=== PATIENT | female | born 1985 | race Caucasian/White ===

== ENCOUNTER 2020-01-13 15:37 | Outpatient (REF) | payer OTHER, SELFPAY ==
--- NOTE | 2020-01-13 16:00 | MR_ITS ---
EXAMINATION: MR CERVICAL SPINE WITHOUT CONTRAST CLINICAL INFORMATION: Radiculopathy, cervical region COMPARISON: None available. TECHNIQUE: MRI of the cervical spine was performed using routine sequences without contrast. FINDINGS: The cervical vertebral bodies maintain normal height and alignment. There is reversal of the normal lordosis. The disc heights appear preserved. No marrow edema is seen. The cervical cord signal appears normal. The imaged portions of the intracranial contents and extraspinal soft tissues appear normal. SPINAL LEVELS: C2-C3: No posterior disc abnormality. No spinal canal or neural foraminal stenosis. C3-C4: No posterior disc abnormality. No spinal canal or neural foraminal stenosis. C4-C5: Minimal disc bulging. No spinal canal or neural foraminal stenosis. C5-C6: Diffuse disc bulging with right foraminal protrusion and small left foraminal protrusion. Mild narrowing of the bilateral neural foramina. No spinal canal stenosis. C6-C7: Mild disc bulging. No spinal canal or neural foraminal stenosis. C7-T1: No posterior disc abnormality. No spinal canal or neural foraminal stenosis. MR/MR cervical spine wo con IMPRESSION: At C5-C6 there is diffuse disc bulging with right more than left foraminal protrusions resulting in mild narrowing of the bilateral foramina. Additional disc bulges are seen at C4-C5 and C6-C7. No significant narrowing of the spinal canal. No cord signal abnormality.
== END 2020-01-13 15:38 | disposition home or self-care (01) ==
LOC: HO.MRI 15:37
PROVIDERS: PCP Internal Medicine; Visit Provider Psychiatry & Neurology Neurology
DX: M54.12 Radiculopathy, cervical region (principal)
CPT/HCPCS: 72141

== ENCOUNTER → 2020-08-25 15:50 | Outpatient (BNVA) | payer OTHER, SELFPAY | PROVIDERS: PCP Internal Medicine; Visit Provider Advanced Practice Midwife ==

== ENCOUNTER 2020-10-09 05:26 | Emergency (ER) | payer OTHER, SELFPAY ==
--- NOTE | ~2020-10-09 | XR_ITS ---
EXAMINATION: XR CHEST CLINICAL INFORMATION: Dyspnea COMPARISON: 10/14/2019 TECHNIQUE: Frontal view of the chest was obtained. FINDINGS: The lungs are clear with no focal consolidation. No evidence of pneumothorax, pulmonary edema, or pleural effusions. The cardiomediastinal silhouette is unremarkable. No acute osseous findings. XR/XR chest 1V IMPRESSION: No acute cardiopulmonary findings.
[2020-10-09 06:11] LABS: COVID-19 Test Negative (Negative)
[2020-10-09 06:21] VITALS: BP 112/78; PULSE 74; RESP 16; TEMP 36.6; O2SAT 100; BMI 25.3
--- NOTE | 2020-10-09 06:42 | ED.SOB ---
HPI - SOB/Dyspnea General Chief Complaint: Upper Respiratory Symptoms Stated Complaint: SOB/back pain Time Seen by Provider: 10/09/20 06:36 Source: patient Mode of arrival: ambulatory Limitations: no limitations History of Present Illness MD elicited complaint: cough and pain with inspiration Onset (ago): day(s) (yesterday) Timing: intermittent Severity: moderate Exacerbating factors: movement and inspiration Relieving factors: nothing Associated symptoms: lower extremity pain (her right thigh was painful yesterday) Treatment prior to arrival: none Related Data Home Medications Medication Instructions Recorded Confirmed methadone 10 mg tablet 12 mg PO DAILY tab 08/25/20 Previous Rx's Medication Instructions Recorded nicotine 14 mg/24 hr daily 1 patch TRANSDERMAL DAILY 7 Days 03/24/20 transdermal patch (Nicoderm CQ) #7 ea nicotine 21 mg/24 hr daily 1 patch TRANSDERMAL DAILY 7 Days 03/24/20 transdermal patch #7 ea nicotine 21 mg/24 hr daily 1 patch TRANSDERMAL Q24H 7 Days #7 03/24/20 transdermal patch (Nicoderm CQ) ea nicotine 7 mg/24 hr daily 1 patch TRANSDERMAL Q24H 7 Days #7 03/24/20 transdermal patch ea omeprazole 40 mg capsule,delayed 40 mg PO DAILY #30 cap 08/18/20 release cyclobenzaprine 10 mg tablet 10 mg PO TID PRN #14 tab 10/09/20 lidocaine 4 % topical patch 1 patch TOPICAL DAILY PRN #10 ea 10/09/20 Allergies Allergy/AdvReac Type Severity Reaction Status Date / Time No Known Allergies Allergy Verified 12/18/19 06:24 Review of Systems Review of Systems: Constitutional : No Fever, No Chills ENT/Mouth : No sore throat, No Rhinorrhea, No Swallowing Difficulty Eyes: No Eye Pain, No Swelling, No Redness Cardiovascular : No Chest Pain, positive SOB, No Orthopnea, pos dyspnea Gastrointestinal : No Nausea, No Vomiting, No Diarrhea, No abdominal Pain, No Hematochezia, No Melena Genitourinary : No Dysuria, No Urinary Frequency, No Hematuria Musculoskeletal : No joint pain, No Myalgias, pos back pain Skin : No Skin Lesions, No rash Neuro : No Weakness, No Numbness, No Dizziness, No Headache Psych : No Anxiety/Panic, No Depression Heme/Lymph: No Bruising, No Lymphadenopathy Endocrine : No Polyuria, No Polydipsia All other systems reviewed and are negative PMFSH Past Medical History Attestation statement: The following information was validated with the patient. Medical History Anxiety GERD (gastroesophageal reflux disease) Methadone use Obesity Surgical History H/O LEEP History of skin graft Family History Family History Father No problems noted. Mother No problems noted. Maternal Grandmother Breast cancer Lung cancer Social History Social History Alcohol intake: former Patient Tobacco Use Status: Current everyday Tobacco user Tobacco use type: Cigarette Cigarette Packs Per Day: 1 Cigarettes Per Day: 20 Use of substances other than those prescribed or required for medical reasons: No Advance Directives: No Advance Directives Information Provided: Yes Patient : No Sexual orientation: Straight/Heterosexual Gender identity: Female Physical Exam Vital Signs: Vital Signs: Last Vital Signs Temp 98.4 F 10/09/20 07:01 Pulse 88 10/09/20 07:01 Resp 16 10/09/20 07:01 BP 108/73 10/09/20 07:01 Pulse Ox 98 10/09/20 07:01 Body Mass Index 25.3 Appearance: Alert. Oriented X3. No acute distress. Eyes: Pupils equal, round and reactive to light. ENT: Pharynx normal. Neck: Normal inspection. Neck supple. CVS: Normal heart rate and rhythm. Pulses normal. Respiratory: No respiratory distress. Breath sounds normal. Abdomen: Soft and non-tender. Skin: Skin warm and dry. Normal skin color. Normal skin turgor. Extremities: No lower extremity edema. No calf ttp Neuro: Oriented X 3. No motor deficit. No sensory deficit. Course Course Course Narrative: negative workup stable for DC MDM - SOB/Dyspnea MDM Narrative Medical decision making narrative: 35 yo female with heavy smoking history comes in with dyspnea and posterior pleuritic pain in her back. She denies URI symptoms. She has no trauma. She does have an implanon at this time could be MSK vs pneumonia vs PE. COVID swab, CXR and basic labs including ddimer for low prob PE dispo per results and findings. Lab Data Result diagrams: 10/09/20 06:54 10/09/20 06:54 Labs: Lab Results 10/09/20 10/09/20 10/09/20 Range/Units 05:52 06:54 06:54 WBC 9.2 (4.8-10.8) X10*3/uL RBC 4.18 L (4.20-5.50) X10*6/uL Hgb 12.9 (12.0-16.0) g/dl Hct 38.5 (37-47) % MCV 92.1 (80-98) fL MCH 30.9 (27.0-33.0) pg MCHC 33.5 (31.0-35.0) g/dl RDW 12.1 (11.0-16.0) % Plt Count 245 (160-400) X10*3/uL MPV 9.7 (9.4-12.3) fL Immature Gran % (Auto) 0.3 (0.0-0.4) % Neut % (Auto) 71.7 (45-73) % Lymph % (Auto) 20.2 (20-40) % [place] % (Auto) 5.9 (2-11) % Eos % (Auto) 1.6 (0-4) % Baso % (Auto) 0.3 (0-2) % Lymph # (Auto) 1.9 (1.2-4.9) X10*3/uL [place] # (Auto) 0.5 (0.1-1.2) X10*3/uL Eos # (Auto) 0.2 (0.0-0.4) X10*3/uL Baso # (Auto) 0.0 (0.0-0.2) X10*3/uL Abs Immat Gran (auto) 0.03 (0.00-0.03) X10*3/uL Absolute Neuts (auto) 6.6 (2.0-8.3) X10*3/uL Absolute Nucleated RBC 0.000 (0.0-0.012) X10*3/uL Nucleated RBC % (auto) 0.0 (0.0-0.2) /100WBC D-Dimer < 200 NG/ML Sodium (135-145) mmol/L Potassium (3.3-5.1) mmol/L Chloride (96-108) mmol/L Carbon Dioxide (22-29) mmol/L Anion Gap (12-20) BUN (9-16) mg/dL Creatinine (0.5-1.4) mg/dL Estim Creat Clear Calc Estimated GFR Random Glucose (60-115) mg/dL Calcium (8.4-10.2) mg/dL Urine Color Urine Appearance Urine pH (5.0-8.0) Ur Specific [place] (1.005-1.025) Urine Protein (NEG-TRACE) MG/DL Urine Glucose (UA) (NEG) MG/DL Urine Ketones (NEG) MG/DL Urine Blood (NEG) Urine Nitrite (NEG) Ur Leukocyte Esterase (NEG) COVID-19 (JUDY) Negative (Negative) COVID-19 Clin Com See Note 10/09/20 10/09/20 Range/Units 06:54 07:27 WBC (4.8-10.8) X10*3/uL RBC (4.20-5.50) X10*6/uL Hgb (12.0-16.0) g/dl Hct (37-47) % MCV (80-98) fL MCH (27.0-33.0) pg MCHC (31.0-35.0) g/dl RDW (11.0-16.0) % Plt Count (160-400) X10*3/uL MPV (9.4-12.3) fL Immature Gran % (Auto) (0.0-0.4) % Neut % (Auto) (45-73) % Lymph % (Auto) (20-40) % Towner % (Auto) (2-11) % Eos % (Auto) (0-4) % Baso % (Auto) (0-2) % Lymph # (Auto) (1.2-4.9) X10*3/uL [place] # (Auto) (0.1-1.2) X10*3/uL Eos # (Auto) (0.0-0.4) X10*3/uL Baso # (Auto) (0.0-0.2) X10*3/uL Abs Immat Gran (auto) (0.00-0.03) X10*3/uL Absolute Neuts (auto) (2.0-8.3) X10*3/uL Absolute Nucleated RBC (0.0-0.012) X10*3/uL Nucleated RBC % (auto) (0.0-0.2) /100WBC D-Dimer NG/ML Sodium 138 (135-145) mmol/L Potassium 3.7 (3.3-5.1) mmol/L Chloride 108 (96-108) mmol/L Carbon Dioxide 23 (22-29) mmol/L Anion Gap 11 L (12-20) BUN 11 (9-16) mg/dL Creatinine 0.79 (0.5-1.4) mg/dL Estim Creat Clear Calc 83.1 Estimated GFR > 60 Random Glucose 122 H (60-115) mg/dL Calcium 9.0 (8.4-10.2) mg/dL Urine Color YELLOW Urine Appearance CLEAR Urine pH 5.5 (5.0-8.0) Ur Specific [place] >= 1.030 H (1.005-1.025) Urine Protein NEG (NEG-TRACE) MG/DL Urine Glucose (UA) NEG (NEG) MG/DL Urine Ketones NEG (NEG) MG/DL Urine Blood NEG (NEG) Urine Nitrite NEG (NEG) Ur Leukocyte Esterase NEG (NEG) COVID-19 (JUDY) (Negative) COVID-19 Clin Com Discharge Plan Discharge Clinical Impression: Acute upper back pain Patient Disposition: Home, Self-Care Instructions: Back Pain (ED) Additional Instructions: return to ED for any worsening symptoms or concerns COVID swab negative, labs including blood clot test were normal, chest xray normal Prescriptions: New cyclobenzaprine 10 mg tablet 10 mg PO TID PRN (Reason: muscle spasm) Qty: 14 RF: 0 lidocaine 4 % adhesive patch,medicated 1 patch topical DAILY PRN (Reason: pain) Qty: 10 RF: 0 No Action nicotine [Nicoderm CQ] 14 mg/24 hr patch 24 hour 1 patch transdermal DAILY 7 Days Qty: 7 RF: 0 nicotine 7 mg/24 hr patch 24 hour 1 patch transdermal Q24H 7 Days Qty: 7 RF: 0 nicotine [Nicoderm CQ] 21 mg/24 hr patch 24 hour 1 patch transdermal Q24H 7 Days Qty: 7 RF: 0 nicotine 21 mg/24 hr patch 24 hour 1 patch transdermal DAILY 7 Days Qty: 7 RF: 0 omeprazole 40 mg capsule,delayed release(DR/EC) 40 mg PO DAILY Qty: 30 RF: 1 methadone 10 mg tablet 12 mg PO DAILY RF: 0 Stand Alone Forms: Work/School Release
[2020-10-09 07:00] LABS: MANUAL DIFF FLAG NO
[2020-10-09 07:01] VITALS: BP 108/73; PULSE 88; RESP 16; TEMP 36.9; O2SAT 98
[2020-10-09 07:03] LABS: Basophils Percent Auto 0.3 % (0-2); Eosinophils Absolute Auto 0.2 X10*3/uL (0.0-0.4); Eosinophils Percent Auto 1.6 % (0-4); Hematocrit 38.5 % (37-47); Hemoglobin 12.9 g/dl (12.0-16.0); Imm Gran Abs Auto 0.03 X10*3/uL (0.00-0.03); Imm Gran Pct Auto 0.3 % (0.0-0.4); Lymphocytes Absolute Auto 1.9 X10*3/uL (1.2-4.9); Lymphocytes Percent Auto 20.2 % (20-40); Mean Corpuscular HGB Conc 33.5 g/dl (31.0-35.0); Mean Corpuscular Hemoglobin 30.9 pg (27.0-33.0); Mean Corpuscular Volume 92.1 fL (80-98); Mean Platelet Volume 9.7 fL (9.4-12.3); Monocytes Absolute Auto 0.5 X10*3/uL (0.1-1.2); Monocytes Percent Auto 5.9 % (2-11); Neutrophils Absolute Auto 6.6 X10*3/uL (2.0-8.3); Neutrophils Percent Auto 71.7 % (45-73); Platelet Count 245 X10*3/uL (160-400); Red Blood Count 4.18 X10*6/uL (4.20-5.50); Red Cell Distribution Width 12.1 % (11.0-16.0); White Blood Count 9.2 X10*3/uL (4.8-10.8)
[2020-10-09 07:11] LABS: D Dimer < 200 NG/ML
[2020-10-09 07:26] LABS: Anion Gap 11 (12-20); Blood Urea Nitrogen 11 mg/dL (9-16); Carbon Dioxide 23 mmol/L (22-29); Chloride 108 mmol/L (96-108); Creatinine Clr Calc Pharmacy 83.1; Estimated Glomerular Filt Rate > 60; Glucose Random 122 mg/dL (60-115); Potassium 3.7 mmol/L (3.3-5.1); Sodium 138 mmol/L (135-145)
[2020-10-09 07:36] LABS: Glucose Urine UA NEG (NEG); Leukocyte Esterase Urine NEG (NEG); Nitrite Urine NEG (NEG); PH 5.5 (5.0-8.0); Specific Gravity - Urine >= 1.030 (1.005-1.025); Urine Blood NEG (NEG); Urine Ketones NEG (NEG); Urine Protein NEG (NEG-TRACE)
[2020-10-09 07:37] LABS: Appearance Urine CLEAR; Color Urine YELLOW
== END 2020-10-09 07:45 | disposition home or self-care (01) ==
PROVIDERS: Emergency Provider Emergency Medicine; PCP Internal Medicine
DX: M54.6 Pain in thoracic spine (principal); Z20.822 Contact with and (suspected) exposure to COVID-19; R05 Cough; F17.210 Nicotine dependence, cigarettes, uncomplicated
CPT/HCPCS: 36415; 71045; 80048; 81003; 85025; 85379; 87635; 99283; 99284

== ENCOUNTER 2021-05-31 10:12 | Emergency (ER) | payer OTHER, SELFPAY ==
--- NOTE | ~2021-05-31 | XR_ITS ---
EXAMINATION: XR CHEST CLINICAL INFORMATION: Swallowed pin to 3 days ago. Feels like a foreign body right side COMPARISON: None TECHNIQUE: 2 views of the chest were obtained. FINDINGS: No significant abnormality is noted involving the heart, lungs, mediastinum, bony thorax or soft tissues. XR/XR chest 2V IMPRESSION: Unremarkable chest examination.
--- NOTE | ~2021-05-31 | XR_ITS ---
EXAMINATION: XR SOFT TISSUE NECK CLINICAL INDICATION: Swallowed pill now with throat pain COMPARISON: None TECHNIQUE: 2 views of the soft tissue neck were obtained. FINDINGS: Soft tissue films of the neck demonstrate a normal larynx, pharynx and upper trachea. No soft tissue swelling or opaque foreign body is demonstrated. XR/XR soft tissue neck IMPRESSION: Unremarkable soft tissue examination.
[2021-05-31 11:11] VITALS: BP 112/71; PULSE 85; RESP 16; TEMP 36.3; O2SAT 97; BMI 28.2
[2021-05-31] MEDS: Lidocaine HCl Viscous 2 % 15 ML SOLUTION MUCOUS MEM (12:49)
--- NOTE | 2021-05-31 12:57 | ED.GENADULT ---
HPI - General Adult General Chief complaint: General Medical Stated complaint: Trouble swallowing Time Seen by Provider: 05/31/21 11:53 Related Data Home Medications Medication Instructions Recorded Confirmed methadone 10 mg tablet 12 mg PO DAILY tab 08/25/20 03/24/21 Previous Rx's Medication Instructions Recorded nicotine 21 mg/24 hr daily 1 patch TRANSDERMAL DAILY 14 Days 03/24/21 transdermal patch #14 ea omeprazole 40 mg capsule,delayed 40 mg PO DAILY #30 cap 05/18/21 release Allergies Allergy/AdvReac Type Severity Reaction Status Date / Time No Known Allergies Allergy Verified 03/24/21 15:11 [facility] Past Medical History Medical History Anxiety GERD (gastroesophageal reflux disease) Methadone use Obesity Surgical History H/O LEEP History of skin graft Family History Family History Father No problems noted. Mother No problems noted. Maternal Grandmother Breast cancer Lung cancer Social History Social History Housing: Apartment Alcohol intake: former Patient Tobacco Use Status: Current everyday Tobacco user Tobacco use type: Cigarette Cigarette Packs Per Day: 1 Cigarettes Per Day: 20 e-Cigarette/Vaping Use: Never Used Second Hand Smoke Exposure: No Advance Directives: No Advance Directives Information Provided: No Patient : No service: No Current occupational status: employed Sexual orientation: Straight/Heterosexual Gender identity: Female Cognitive needs: No Hearing needs: No Vision needs: No Physical Exam ED Vital Signs: Vital Signs - 24 hr 05/31/21 11:11 Temperature 97.4 F Pulse Rate 85 Respiratory Rate 16 Blood Pressure 112/71 Pulse Oximetry 97 BMI result Body Mass Index 28.2 Medical Decision Making Lab Data Labs: Lab Results 05/31/21 05/31/21 Range/Units 12:47 12:47 COVID-19 (JUDY) Negative (Negative) COVID-19 Clin Com See Note Influenza Type A (IZA) Negative (Negative) Influenza Type B (IZA) Negative (Negative) Influenza A & B Note See Note Discharge Plan Discharge Prescriptions: No Action omeprazole 40 mg capsule,delayed release(DR/EC) 40 mg PO DAILY Qty: 30 1RF nicotine 21 mg/24 hr patch 24 hour 1 patch transdermal DAILY 14 Days Qty: 14 1RF methadone 10 mg tablet 12 mg PO DAILY 0RF
[2021-05-31 13:19] LABS: COVID-19 Test Negative (Negative); IDNOW Serial# 16C4AD1C
[2021-05-31 13:20] LABS: IDNOW Serial# 55D5AD1C; Influenza A Negative (Negative); Influenza B2 Negative (Negative)
--- NOTE | 2021-05-31 13:31 | ED_ITS ---
HPI - Skin/Abscess/Foreign Bdy General Chief complaint: General Medical Stated complaint: Trouble swallowing Time Seen by Provider: 05/31/21 11:53 Source: patient Mode of arrival: ambulatory Limitations: no limitations History of Present Illness HPI narrative: 35-year-old female presenting to the ED with complaints of right-sided throat/esophagus pain after swallowing and amoxicillin on Monday. She reports that she started having some nasal congestion/rhinorrhea therefore she thought she was getting a sinus infection due to she has had sinus infections in the past and she had an old amoxicillin laying around her house and she decided to take it. She reports right after she took it she felt like it got stuck in her throat/esophagus on the right side. She has been drinking tons of water and juice and she has been eating and drinking and she still feels the sensation of the pill in her throat/esophagus. She denies any other symptoms complaints or concerns at this time. MD complaint: foreign body Onset (ago): day(s) (3) Severity: mild Quality: burning, constant and foreign body sensation Pain Consistency: constant Relieving factors: none Exacerbating factors: other (When she swallows) Context: recent antibiotic (She took an amoxicillin) Associated symptoms: denies other symptoms Treatments prior to arrival: other (She has Eaten and drunk multiple times and still feels like there is something stuck in her throat) Related Data Home Medications Medication Instructions Recorded Confirmed methadone 10 mg tablet 12 mg PO DAILY tab 08/25/20 03/24/21 Previous Rx's Medication Instructions Recorded nicotine 21 mg/24 hr daily 1 patch TRANSDERMAL DAILY 14 Days 03/24/21 transdermal patch #14 ea omeprazole 40 mg capsule,delayed 40 mg PO DAILY #30 cap 05/18/21 release amoxicillin 875 mg-potassium 1 tab PO BID 7 Days #14 tab 05/31/21 clavulanate 125 mg tablet lidocaine HCl 2 % mucosal solution 1 appl MUCOUS MEMBRANE BID PRN 05/31/21 (Lidocaine Viscous) #100 ml Allergies Allergy/AdvReac Type Severity Reaction Status Date / Time No Known Allergies Allergy Verified 03/24/21 15:11 Review of Systems Review of Systems: Constitutional : No Weight loss, No Fever, No Chills, No Night Sweats, No Fatigue, No Malaise ENT/Mouth : + nasal congestion/rhinorrhea, right-sided throat pain/esophagus pain, No Hearing loss, No Ear Pain, No Sinus Pain, No Hoarseness, No Swallowing Difficulty Eyes: No Eye Pain, No Swelling, No Redness, No Foreign Body, No Discharge, No Vision Changes Cardiovascular : No Chest Pain, No SOB, No Dyspnea on Exertion, No Orthopnea, No Edema, No Palpitations Respiratory : No Cough, No Sputum, No Wheezing, No Smoke Exposure, No Dyspnea Gastrointestinal : No Nausea, No Vomiting, No Diarrhea, No Constipation, No abdominal Pain, No Hematochezia, No Melena Genitourinary : no irregular bleeding, No Dysuria, No Urinary Frequency, No Hematuria, No Urinary Incontinence, No Urgency, No Flank Pain, No Urinary Flow Changes, No Hesitancy Musculoskeletal : No joint pain, No Myalgias, No Joint Swelling Skin : No Skin Lesions, No rash Neuro : No Weakness, No Numbness, No Paresthesias, No Loss of Consciousness, No Dizziness, No Headache Psych : No Anxiety/Panic, No Depression, No SI/HI/AH/VH, No Social Issues, Heme/Lymph: No Bruising, No Bleeding,No Lymphadenopathy Endocrine : No Polyuria, No Polydipsia, No Temperature Intolerance Yes all other systems are reviewed and are negative [facility] Past Medical History Attestation statement: The following information was validated with the patient. Medical History Anxiety GERD (gastroesophageal reflux disease) Methadone use Obesity Surgical History H/O LEEP History of skin graft Family History Family History Father No problems noted. Mother No problems noted. Maternal Grandmother Breast cancer Lung cancer Social History Social History Housing: Apartment Alcohol intake: former Patient Tobacco Use Status: Current everyday Tobacco user Tobacco use type: Cigarette Cigarette Packs Per Day: 1 Cigarettes Per Day: 20 e-Cigarette/Vaping Use: Never Used Second Hand Smoke Exposure: No Advance Directives: No Advance Directives Information Provided: No Patient : No service: No Current occupational status: employed Sexual orientation: Straight/Heterosexual Gender identity: Female Cognitive needs: No Hearing needs: No Vision needs: No Physical Exam Vital Signs: Vital Signs: Last Vital Signs Temp 97.4 F 05/31/21 11:11 Pulse 85 05/31/21 11:11 Resp 16 05/31/21 11:11 BP 112/71 05/31/21 11:11 Pulse Ox 97 05/31/21 11:11 BMI result Body Mass Index 28.2 vital signs have been reviewed as normal and appeared to be correct. Blood pressure normal. Heart rate normal. Respiration rate normal. Temperature normal. Oxygen saturation normal. Appearance: Alert. Oriented X3. No acute distress. Head: Normal external exam. Normocephalic. Atraumatic. Eyes: PERRLA. EOMI. Conjunctiva and sclera normal. Eyelids normal. ENT: EAC normal. TM's Normal. Oropharynx within normal limits. Soft and hard palate are within normal limits. Uvula is midline not deviated. No foreign bodies are noted. Mild erythema noted to bilateral tonsils although no exudate is noted. Moist mucous membranes. No lesions/ulcerations or masses noted on the tongue. Normal voice. No trismus noted. No drooling noted. No muffled voice noted. Neck: Normal inspection. Neck supple. FROM. No adenopathy. Thyroid Normal. No tracheal deviation noted. No crepitus is noted. No meningeal signs. No neck mass noted. No signs of trauma noted. CVS: Normal heart rate and rhythm. Heart sound normal. Pulses normal throughout. No murmurs/rales/gallops. Respiratory: No respiratory distress. Painless inspiration. Breath sounds normal. No wheezes/rales/rhonchi noted. Chest nontender. No crepitus is noted. No signs of trauma noted. No accessory muscle usage noted or decreased air movement noted. No signs of trauma. Abdomen: Soft and nontender. Bowel sounds normal in all 4 quadrants. No distention noted. No organomegaly noted. No visible injury noted. Back: Full range of motion noted. Nontender. Skin: Skin warm and dry. Normal skin color. Normal skin turgor. No rashes/lesions/lacerations noted. Extremities:Extremities exhibit normal range of motion and nontender. Neuro: Oriented X 3. No motor deficit. No sensory deficit. Reflexes normal. Normal steady gait. No focal neuro deficits noted. CN's II-XII intact bilaterally? Vascular: + radial pulses Normal cap refill. No cyanosis noted to upper extremity nails Course Course Course Narrative: 12:40pm - 35-year-old female presenting to the ED with complaints of right-sided throat/esophagus pain after swallowing and amoxicillin on Monday. She reports that she started having some nasal congestion/rhinorrhea therefore she thought she was getting a sinus infection due to she has had sinus infections in the past and she had an old amoxicillin laying around her house and she decided to take it. She reports right after she took it she felt like it got stuck in her throat/esophagus on the right side. She has been drinking tons of water and juice and she has been eating and drinking and she still feels the sensation of the pill in her throat/esophagus. On my exam patient is alert and oriented x3. Not in any acute distress. Lungs are clear to auscultation. Thyroid normal. No swelling noted to the neck. Oropharynx within normal limits. Hard and soft palate appear normal. Uvula is midline. No trismus/drooling/stridor. Normal voice. Patient tolerating secretions well. No foreign bodies noted on my exam. Will obtain COVID/influenza/strep swab and a chest x-ray and soft tissue neck. Provide viscous lidocaine then re-evaluate. Reevaluation(s) Reevaluation #1: - patient negative for COVID/influenza/strep. Chest x-ray and soft tissue neck within normal limits. Patient reports symptomatic relief with the viscous lidocaine. Therefore patient most likely irritation from the pill she swallowed she most likely could possibly have strep throat therefore will treat for strep throat and she is agreeable to this. Will DC home with symptomatic treatment as well instructions return if any new or worsening symptoms to follow up with primary care provider. Patient understands agrees with this plan. Time: 14:32 MDM - Skin/Abscess/Foreign Bdy Medical Records Attestation: I reviewed the patient's medical records. Lab Data Attestation: I reviewed the patient's lab results. Labs: Lab Results 05/31/21 05/31/21 Range/Units 12:47 12:47 COVID-19 (JUDY) Negative (Negative) COVID-19 Clin Com See Note Influenza Type A (IZA) Negative (Negative) Influenza Type B (IZA) Negative (Negative) Influenza A & B Note See Note Discharge Plan Discharge Clinical Impression: Pharyngitis Patient Disposition: Home, Self-Care Instructions: Pharyngitis (ED) Prescriptions: New amoxicillin-pot clavulanate 875-125 mg tablet 1 tab PO BID 7 Days Qty: 14 0RF lidocaine HCl [Lidocaine Viscous] 2 % solution 1 appl mucous membrane BID PRN (Reason: Throat irritation) Qty: 100 0RF No Action omeprazole 40 mg capsule,delayed release(DR/EC) 40 mg PO DAILY Qty: 30 1RF nicotine 21 mg/24 hr patch 24 hour 1 patch transdermal DAILY 14 Days Qty: 14 1RF methadone 10 mg tablet 12 mg PO DAILY 0RF Referrals: Nirav Garcia MD [Primary Care Provider] - Stand Alone Forms: Work/School Release Print Language: Palauan
[2021-05-31 14:40] LABS: IDNOW Serial# 08D9AD1C; Strep A Nucleic Acid Negative (Negative)
== END 2021-05-31 14:40 | disposition home or self-care (01) ==
PROVIDERS: Physician Assistant Medical; Emergency Provider Emergency Medicine; PCP Internal Medicine
DX: J02.9 Acute pharyngitis, unspecified (principal); R13.10 Dysphagia, unspecified; F17.210 Nicotine dependence, cigarettes, uncomplicated; Z20.822 Contact with and (suspected) exposure to COVID-19; Z71.6 Tobacco abuse counseling; Z79.899 Other long term (current) drug therapy
CPT/HCPCS: 70360; 71046; 87502; 87635; 87651; 99283

== ENCOUNTER 2021-07-05 13:43 | Outpatient (REF) | payer OTHER, SELFPAY ==
[2021-07-06 10:55] LABS: BV Int Neg Control Negative (Negative); BV Int Pos Control Positive (Positive)
[2021-07-08 08:21] LABS: HPV mRNA E6/E7 rflx Not Detected (Not Detected)
== END 2021-07-05 13:44 | disposition home or self-care (01) ==
LOC: HO.LAB 13:43
PROVIDERS: PCP Internal Medicine; Visit Provider Advanced Practice Midwife
DX: Z01.411 Encounter for gynecological examination (general) (routine) with abnormal findings (principal); Z11.51 Encounter for screening for human papillomavirus (HPV); L29.2 Pruritus vulvae; N89.8 Other specified noninflammatory disorders of vagina; Z72.0 Tobacco use
CPT/HCPCS: 81025; 87480; 87510; 87624; 87660; 88142

== ENCOUNTER → 2021-09-27 11:09 | Outpatient (BNVA) | payer OTHER, SELFPAY | PROVIDERS: PCP Internal Medicine; Visit Provider Advanced Practice Midwife | DX: Z30.46 Encounter for surveillance of implantable subdermal contraceptive (principal) | CPT/HCPCS: 11983; 81025; J7307 ==

== ENCOUNTER 2023-08-02 13:59 | Outpatient (AMB) | payer OTHER, SELFPAY ==
[2023-08-02 14:05] VITALS: BP 102/78; PULSE 76; O2SAT 98; BMI 30.2
--- NOTE | 2023-08-02 14:05 | MHC.PC.OV ---
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: No Allergies No Known Allergies Allergy (Verified 08/02/23 14:50) Medication List - Last Reconciled 08/02/23 by Nirav Garcia MD albuterol sulfate 90 mcg/actuation (Ventolin HFA) 1 inh inhalation QID PRN methadone 12 mg PO DAILY nicotine 1 patch transdermal DAILY 14 days omeprazole 40 mg PO DAILY Tobacco use date assessed: 08/02/23 Dental Screening Dental Screen Date: 08/02/23 Did you have a dental visit in the last 12 months?: No Did you have a dental problem in the last 6 months where you did not have access to dental care?: No HPI PSML paperwork HPI Details Patient comes in today mainly to have some PSML papers filled out for her employer as she palsn to stay out of work for the next 20 weeks - she was last seen by me a few years ago on 09/23/2019 although she has been in a couple of times since for other reasons and was seen by other providers here in our office States that her 15 y/o son was just diagnosed with Peters's sarcoma a few months ago on 03/21/23, after struggling for a year with recurrent lower back / right hip pain and right leg pain States that he is currently undergoing cancer treatment down in [place], [place] but patient states that all these have taken a huge toll on her emotionally and that she is currently struggling with increased anxiety and stress States that she has been seeing her therapist at [facility] for the past few weeks now and has been diagnosed with PTSD and GIANCARLO She has not yet seen a psychiatrist or a psych prescriber States that she is planning to stay out of work not just because of her mental health but to also give her a chance to help her son out in any way she can while he undergoes the upcoming treatments for his sarcoma States that she would also need to have a couple of her Rx refilled, including her Omeprazole and Nicotine patches She has had trouble sleeping at night lately; denies any headaches or dizziness Denies any chest pains, no SOB No nausea/vomiting, no abdominal pain No change in bowel habits noted [facility] Medical History (Updated 08/02/23 @ 17:09 by Nirav Garcia MD) Obesity (BMI 30-39.9) Generalized anxiety disorder Posttraumatic stress disorder Opiate addiction Methadone use Obesity Anxiety GERD (gastroesophageal reflux disease) Surgical History History of skin graft H/O LEEP Family History Father No problems noted. Mother No problems noted. 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 1. Little interest or pleasure in doing things: more than half the days 2. Feeling down, depressed, or hopeless: more than half the days 3. Trouble falling or staying asleep, or sleeping too much: nearly every day 4. Feeling tired or having little energy: nearly every day 5. Poor appetite or overeating: nearly every day (overeating ) 6. Feeling bad about yourself - or that you are a failure or have let yourself or your family down: several days 7. Trouble concentrating on things, such as reading the newspaper or watching television: several days 8. Moving or speaking so slowly that other people could have noticed. Or the opposite - being so fidgety or restless that you have been moving around a lot more than usual: not at all 9. Thoughts that you would be better off or of hurting yourself in some way: not at all Total score: 15 Depression Screening Interpretation: Positive Depression Screening Follow-up: Existing condition, New Medication prescribed and Community Mental Health Worker F/U Depression Screening Done: Yes 28844 - PHQ-9 Billing: Yes Source: Developed by Drs. Kareem Gillis, Hvaen Nice, Carlos Sutherland and colleagues, with an educational misa from [employer]. Thrive Questionnaire Date Thrive assessed: 08/02/23 I am a: Patient What is your living situation today?: I have a steady place to live Within the past 12 months, did the food you bought not last and you didn't have the money to get more?: Never true Within the past 12 months, did you worry whether your food would run out before you got money to buy more?: Never true Do you have trouble paying for medicines?: No Do you have trouble getting transportation to medical appointments?: No Do you have trouble paying your heating and electricity bill?: No Do you have trouble taking care of your child, family member or friend?: No Do you have trouble with day-to-day activities such as bathing, preparing meals, shopping, managing finances, etc.?: No Are you currently unemployed and looking for a job?: No Are you interested in more education?: No Please select the resources that you would like help with: None Currently or been in a relationship where the following occur: no concerns reported THRIVE Score: 0 AUDIT C Alcohol Use Questionnaire (AUDIT-C) 1. How often do you have a drink containing alcohol?: Never 2. How many drinks containing alcohol do you have on a typical day when you are drinking?: 1 or 2 (0) 3. How often do you have six or more drinks on one occasion?: Never Total Score: 0 Score Reviewed/Action Taken: Yes GIANCARLO-7 AMB Questionnaire GIANCARLO-7 Date GIANCARLO - 7 assessed: 08/02/23 Feeling nervous, anxious, or on edge: 2 = More than half the days Not being able to stop or control worryin = Nearly every day Worrying too much about different things: 3 = Nearly every day Trouble relaxin = Nearly every day Being so restless that it is hard to sit still: 3 = Nearly every day Becoming easily annoyed or irritable: 3 = Nearly every day Feeling afraid as if something awful might happen: 1 = Several days Total GIANCARLO-7 score (0-4 normal; 5-9 mild; 10-14 moderate; 15-21 severe): 18 Source: Developed by Drs. Kareem Gillis, Haven Nice, Carlos Sutherland and colleagues, with an educational misa from [employer]. GIANCARLO-7 Assessment Billing GIANCARLO-7 Assessment Tool: GIANCARLO-7 Assessment 64102 Review of Systems Const Reports as per HPI, Denies chills, Reports difficulty sleeping, Reports fatigue, Denies fever(s) and Denies headache(s) ENT Denies dysphagia, Denies dizziness, Denies otalgia, Denies headache(s), Denies neck pain, Denies odynophagia and Denies sore throat Card Denies chest pain, Denies palpitations and Denies dyspnea Resp Denies cough and Denies dyspnea GI Denies abdominal pain, Denies constipation, Denies dysphagia, Denies heartburn, Denies diarrhea, Denies nausea, Denies odynophagia and Denies vomiting Denies difficulty voiding, Denies nocturia, Denies dysuria and Denies urinary urgency Musc Denies back pain and Denies neck pain Neuro Denies dizziness and Denies headache(s) Psych Reports anxiety and Reports depression Endo Reports fatigue and Denies palpitations Physical exam (Primary Care) Vital Signs: Last Vital Signs Pulse 76 08/02/23 14:05 BP 102/78 08/02/23 14:05 Pulse Ox 98 08/02/23 14:05 Oxygen Delivery Method Room Air 08/02/23 14:05 BMI result Body Mass Index 30.2 Tobacco/Smoking Status: Tobacco use Status Tobacco use date assessed 08/02/23 08/02/23 14:06 Patient Tobacco Use Status Current everyday Tobacco 08/02/23 14:06 Tobacco use type Cigarette 08/02/23 14:06 e-Cigarette/Vaping Use Never Used 08/02/23 14:06 PHQ-9: PHQ-9 Score PHQ-9: Total score 15 08/02/23 15:16 Depression Screening Interpretation: Positive Depression Screening Follow-up: Existing condition, New Medication prescribed and Community Mental Health Worker F/U Thrive Assessment: Date of Thrive Assessment Date Thrive assessed 08/02/23 08/02/23 14:06 Currently or been in a relationship where the following occur: no concerns reported Const General: no acute distress and alert HENMT Throat: Yes posterior oropharynx normal and Yes tonsils normal (no TP congestion) Neck Neck: Yes no lymphadenopathy and Yes supple Thyroid: Thyroid normal Resp Auscultation: clear to auscultation bilaterally, no rales and no wheezes Cardio Rate: regular rate Rhythm: regular rhythm Heart sounds: no murmurs GI Palpation (GI): Soft to palpation and nontender Auscultation: normal bowel sounds General: Yes no CVA tenderness Back/Spine/Pelvis Back: no CVA tenderness Skin Rashes: no rashes Neuro Cognition (Neuro): normal cognition Extrem General: Yes no clubbing, cyanosis or edema Assessment and Plan Assessment & Plan (1) Posttraumatic stress disorder: Code(s): F43.10 - Post-traumatic stress disorder, unspecified Plan: This is most likely brought on/triggered by her 15 y/o son being diagnosed with Peters's sarcoma a few months ago and he is now undergoing treatment in [place], [place] She is currently seeing a therapist/counselor at [facility] and will continue to follow up with them on this PSML/FMLA papers for her employer filled out and handed to patient today - she plans to stay off work for the next 20 weeks to help her son in his current shay with his sarcoma (2) Generalized anxiety disorder: Code(s): F41.1 - Generalized anxiety disorder Plan: Follow up with [facility] as scheduled Will go ahead and start patient for now on Sertraline 50 mg QD (3) GERD (gastroesophageal reflux disease): Code(s): K21.9 - Gastro-esophageal reflux disease without esophagitis Qualifiers: Esophagitis presence: without esophagitis Qualified Code(s): K21.9 - Gastro-esophageal reflux disease without esophagitis Plan: Dietary restrictions reinforced Continue Omeprazole 40 mg QD (4) Reactive airway disease: Code(s): J45.909 - Unspecified asthma, uncomplicated Qualifiers: Asthma severity: mild Asthma persistence: intermittent Asthma complication type: uncomplicated Qualified Code(s): J45.20 - Mild intermittent asthma, uncomplicated Plan: Stable lately Continue Albuterol HFA 1 to 2 inhalations Q 6 hours PRN (5) Opiate addiction: Comment: states that she has been clean (in remission) for over 10 years Code(s): F11.20 - Opioid dependence, uncomplicated Qualifiers: Substance use status: in remission Qualified Code(s): F11.21 - Opioid dependence, in remission Plan: In remission - patient has been clean for over 10 years Continue Methadone 12 mg QD Follow up with [facility] in [place] as scheduled (6) Smoker: Code(s): F17.200 - Nicotine dependence, unspecified, uncomplicated Plan: Counseled again on smoking cessation Continue Nicotine 21 mg patch QD as instructed - Rx refilled (7) Obesity (BMI 30-39.9): Code(s): E66.9 - Obesity, unspecified Plan: Reinforced diet/exercise as tolerated/lose weight Plan To return in 6 months for her annual physical examination Medications: New sertraline 50 mg PO DAILY 30 days 30 tabs 4RF Changed From nicotine 1 patch transdermal DAILY 14 days 14 ea 1RF F17.200 - Nicotine dependence, unspecified, uncomplicated To nicotine 1 patch transdermal DAILY 28 days 28 ea 1RF F17.200 - Nicotine dependence, unspecified, uncomplicated From omeprazole 40 mg PO DAILY 30 caps 1RF To omeprazole 40 mg PO DAILY 90 days 90 caps 1RF Coding Level of Care Code Est Pt Level 4 (89337) Diagnoses Posttraumatic stress disorder F43.10 Generalized anxiety disorder F41.1 Gastroesophageal reflux disease without esophagitis K21.9 Esophagitis presence: without esophagitis Mild intermittent reactive airway disease without complication J45.20 Asthma severity: mild Asthma persistence: intermittent Asthma complication type: uncomplicated Opioid dependence in remission F11.21 Substance use status: in remission Smoker F17.200 Obesity (BMI 30-39.9) E66.9 Additional Codes GIANCARLO-7 Assessment Billing - GIANCARLO-7 Assessment Tool: GIANCARLO-7 Assessment 50060 ([id number])
== END 2023-08-02 15:05 | disposition home or self-care (01) ==
PROVIDERS: PCP Internal Medicine; Visit Provider Internal Medicine
DX: F43.10 Post-traumatic stress disorder, unspecified (principal); F41.1 Generalized anxiety disorder; F11.21 Opioid dependence, in remission; J45.20 Mild intermittent asthma, uncomplicated; K21.9 Gastro-esophageal reflux disease without esophagitis; F17.200 Nicotine dependence, unspecified, uncomplicated
CPT/HCPCS: 96127; 99214

== ENCOUNTER 2023-08-31 10:45 | Outpatient (AMB) | payer OTHER, SELFPAY ==
--- NOTE | 2023-08-31 10:49 | MHC.PC.OV ---
Vital Signs 08/31/23 10:50 Height 5 ft 1 in Weight 164 lb 6 oz BMI 31.1 BP 130/70 Blood Pressure Location Lt brachial Position Sitting Pulse 88 Pulse Source Pulse Oximeter Pulse Oximetry (%) 99 Oxygen Delivery Method Room Air Intake Visit Reasons: Dermatology referral Intake Note: Patient is here to follow up on Dermatology referral. Associate Director Financial Aid Required: No [place] Hold: Not Required per policy Accompanied by: Self / Same As Patient Allergies No Known Allergies Allergy (Verified 08/31/23 11:03) Medication List - Last Reconciled 08/31/23 by Nirav Garcia MD albuterol sulfate 90 mcg/actuation (Ventolin HFA) 1 inh inhalation QID PRN methadone 12 mg PO DAILY nicotine 1 patch transdermal DAILY 28 days omeprazole 40 mg PO DAILY 90 days sertraline 50 mg PO DAILY 30 days Tobacco use date assessed: 08/31/23 Dental Screening Dental Screen Date: 08/02/23 HPI Dermatology referral HPI Details Patient comes in today mainly to request for a referral to see dermatology States that she's had multiple skin tags / lesions over both of her inguinal areas for years and she also has what appears to be a mole on her left inguinal area, with a skin tag adjacent to it States that the aforementioned mole appears to have gotten bigger recently and also notes that shs is starting to experience some pain over the area where the mole is at times lately and she now wants to get this checked out and to also consider having her other skin tags removed if possible Adds that she has been experiencing increased and frequent migraine headaches lately Cites increased stress over her son's recent health issues as a big contributor to her headaches lately - her 15 y/o son was diagnosed with Peters's sarcoma earlier this year and he is now undergoing treatment at [place], [place] States that she usually takes OTC Ibuprofen to relieve her headaches but states that these have not helped at all lately She relates (+) photophobia and nausea associated with her recent headaches She denies any fever or sore throat; denies any dizziness Denies any chest pains, no increased SOB No vomiting, no abdominal pain and no change in bowel habits noted [facility] Medical History (Updated 08/31/23 @ 21:28 by Nirav Garcia MD) Obesity (BMI 30-39.9) Generalized anxiety disorder Posttraumatic stress disorder Opiate addiction Methadone use Obesity Anxiety GERD (gastroesophageal reflux disease) Surgical History History of skin graft H/O LEEP Family History Father No problems noted. Mother No problems noted. 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 Kareem Gillis, Haven Nice, Carlos Sutherland and colleagues, with an educational misa from [employer]. Review of Systems Const Denies chills, Reports difficulty sleeping, Reports fatigue, Denies fever(s) and Reports headache(s) (frequent/recurrent - associated with photophobia and nausea) Eyes Reports photophobia (when headaches occur) ENT Denies dysphagia, Denies dizziness, Denies otalgia, Reports headache(s) (frequent/recurrent - associated with photophobia and nausea), Denies neck pain, Denies odynophagia and Denies sore throat Card Denies chest pain, Denies palpitations and Denies dyspnea Resp Denies chest congestion, Denies cough and Denies dyspnea GI Denies abdominal pain, Denies constipation, Denies dysphagia, Denies heartburn, Denies diarrhea, Reports nausea (associated with headaches), Denies odynophagia and Denies vomiting Denies difficulty voiding, Denies nocturia, Denies dysuria and Denies urinary urgency Musc Denies back pain and Denies neck pain Skin/Breast Reports as per HPI Neuro Denies dizziness and Reports headache(s) (frequent/recurrent - associated with photophobia and nausea) Psych Reports anxiety and Reports depression Endo Reports fatigue and Denies palpitations Physical exam (Primary Care) Vital Signs: Last Vital Signs Pulse 88 08/31/23 10:50 BP 130/70 08/31/23 10:50 Pulse Ox 99 08/31/23 10:50 Oxygen Delivery Method Room Air 08/31/23 10:50 BMI result Body Mass Index 31.1 Tobacco/Smoking Status: Tobacco use Status Tobacco use date assessed 08/31/23 08/31/23 10:53 Patient Tobacco Use Status Current everyday Tobacco 08/31/23 10:53 Tobacco use type Cigarette 08/31/23 10:53 e-Cigarette/Vaping Use Never Used 08/31/23 10:53 Thrive Assessment: Date of Thrive Assessment Date Thrive assessed 08/02/23 08/31/23 10:53 Const General: no acute distress and alert HENMT Ears: TM's normal bilaterally and EAC's normal Throat: Yes posterior oropharynx normal and Yes tonsils normal (no TP congestion) Eyes Direct Ophthalmoscopy: photophobia (when headaches occur) Neck Neck: Yes no lymphadenopathy and Yes supple Thyroid: Thyroid normal Resp Auscultation: clear to auscultation bilaterally, no rales and no wheezes Cardio Rate: regular rate Rhythm: regular rhythm Heart sounds: no murmurs GI Palpation (GI): Soft to palpation and nontender Auscultation: normal bowel sounds General: Yes no CVA tenderness Back/Spine/Pelvis Back: no CVA tenderness Skin Other: (+) multiple skin tags/lesions over the inguinal areas bilaterally; (+) hyperpigmented lesion over the left inguinal area adjacent to a skin tag Neuro Cognition (Neuro): normal cognition Extrem General: Yes no clubbing, cyanosis or edema Assessment and Plan Assessment & Plan (1) Migraine: Code(s): G43.909 - Migraine, unspecified, not intractable, without status migrainosus Qualifiers: Migraine type: unspecified Status migrainosus presence: without status migrainosus Intractability: not intractable Qualified Code(s): G43.909 - Migraine, unspecified, not intractable, without status migrainosus Plan: Reinforced avoidance of any potential migraine triggers as much as possible May continue OTC Ibuprofen PRN Will start patient on Topiramate 25 mg Q HS for headache prophylaxis She is advised to call for further instructions if she still does not experience any significant improvement of her headaches in the next few weeks (2) Skin tag: Code(s): L91.8 - Other hypertrophic disorders of the skin Plan: Will refer her to dermatology (Dr. Wallis) for further evaluation and possible excision of the numerous skin tags/lesions over patient's inguinal areas bilaterally AND also of the hyperpigmented mole on her left inguinal area (3) Generalized anxiety disorder: Code(s): F41.1 - Generalized anxiety disorder Plan: Continue Sertraline 50 mg QD Follow up with [facility] as scheduled (4) GERD (gastroesophageal reflux disease): Code(s): K21.9 - Gastro-esophageal reflux disease without esophagitis Qualifiers: Esophagitis presence: without esophagitis Qualified Code(s): K21.9 - Gastro-esophageal reflux disease without esophagitis Plan: Dietary restrictions reinforced Continue Omeprazole 40 mg QD (5) Reactive airway disease: Code(s): J45.909 - Unspecified asthma, uncomplicated Qualifiers: Asthma severity: mild Asthma persistence: intermittent Asthma complication type: uncomplicated Qualified Code(s): J45.20 - Mild intermittent asthma, uncomplicated Plan: Stable lately Continue Albuterol HFA 1 to 2 inhalations Q 6 hours PRN (6) Opiate addiction: Comment: states that she has been clean (in remission) for over 10 years Code(s): F11.20 - Opioid dependence, uncomplicated Qualifiers: Substance use status: in remission Qualified Code(s): F11.21 - Opioid dependence, in remission Plan: In remission - patient has been clean for over 10 years Continue Methadone 12 mg QD Follow up with [facility] in [place] as scheduled (7) Smoker: Code(s): F17.200 - Nicotine dependence, unspecified, uncomplicated Plan: Counseled again on smoking cessation Continue Nicotine 21 mg patch QD as instructed (8) Obesity (BMI 30-39.9): Code(s): E66.9 - Obesity, unspecified Plan: Reinforced diet/exercise as tolerated/lose weight Plan To return as scheduled in December 2023 for her annual physical examination Orders: Referrals Dermatology Referral D22.9 - Melanocytic nevi, unspecified, L91.8 - Other hypertrophic disorders of the skin Medications: New topiramate (Topamax) 25 mg PO DAILY 30 tabs 3RF migraine 30 days G43.909 - Migraine, unspecified, not intractable, without status migrainosus Coding Level of Care Code Est Pt Level 4 (60202) Diagnoses Migraine without status migrainosus, not intractable, unspecified migraine type G43.909 Migraine type: unspecified Status migrainosus presence: without status migrainosus Intractability: not intractable Skin tag L91.8 Generalized anxiety disorder F41.1 Gastroesophageal reflux disease without esophagitis K21.9 Esophagitis presence: without esophagitis Mild intermittent reactive airway disease without complication J45.20 Asthma severity: mild Asthma persistence: intermittent Asthma complication type: uncomplicated Opioid dependence in remission F11.21 Substance use status: in remission Smoker F17.200 Obesity (BMI 30-39.9) E66.9
[2023-08-31 10:50] VITALS: BP 130/70; PULSE 88; O2SAT 99; BMI 31.1
== END 2023-08-31 11:14 | disposition home or self-care (01) ==
PROVIDERS: PCP Internal Medicine; Visit Provider Internal Medicine
DX: G43.909 Migraine, unspecified, not intractable, without status migrainosus (principal); F11.21 Opioid dependence, in remission; E66.9 Obesity, unspecified; Z68.31 Body mass index [BMI] 31.0-31.9, adult; L91.8 Other hypertrophic disorders of the skin; F41.1 Generalized anxiety disorder; K21.9 Gastro-esophageal reflux disease without esophagitis; J45.20 Mild intermittent asthma, uncomplicated; F17.210 Nicotine dependence, cigarettes, uncomplicated
CPT/HCPCS: 99214

== ENCOUNTER 2024-04-01 15:57 | Outpatient (AMB) | payer OTHER, SELFPAY ==
[2024-04-01 16:01] VITALS: BP 116/62; PULSE 85; O2SAT 98; BMI 32.1
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
== END 2024-04-01 16:58 | disposition home or self-care (01) ==
PROVIDERS: PCP Internal Medicine; Visit Provider Internal Medicine
DX: Z00.00 Encounter for general adult medical examination without abnormal findings (principal); G43.909 Migraine, unspecified, not intractable, without status migrainosus; K21.9 Gastro-esophageal reflux disease without esophagitis; J45.20 Mild intermittent asthma, uncomplicated; F11.11 Opioid abuse, in remission; F41.1 Generalized anxiety disorder; F17.200 Nicotine dependence, unspecified, uncomplicated; E66.9 Obesity, unspecified

== ENCOUNTER → 2024-04-01 15:57 | Outpatient (BNVA) | payer OTHER, SELFPAY | PROVIDERS: PCP Internal Medicine; Visit Provider Internal Medicine | DX: Z00.00 Encounter for general adult medical examination without abnormal findings (principal); G43.909 Migraine, unspecified, not intractable, without status migrainosus; K21.9 Gastro-esophageal reflux disease without esophagitis; J45.20 Mild intermittent asthma, uncomplicated; F11.11 Opioid abuse, in remission; F41.1 Generalized anxiety disorder; E66.9 Obesity, unspecified; F17.200 Nicotine dependence, unspecified, uncomplicated; Z71.6 Tobacco abuse counseling | CPT/HCPCS: 96127; 99395 ==

== ENCOUNTER 2024-11-08 12:53 | Outpatient (AMB) | payer OTHER, SELFPAY ==
[2024-11-08 12:58] VITALS: BP 110/70; PULSE 73; O2SAT 97; BMI 32.9
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
== END 2024-11-08 13:21 | disposition home or self-care (01) ==
LOC: HO.HMCH 12:53
PROVIDERS: PCP Internal Medicine; Visit Provider Internal Medicine
DX: G43.909 Migraine, unspecified, not intractable, without status migrainosus (principal); F11.11 Opioid abuse, in remission; E66.9 Obesity, unspecified; Z68.32 Body mass index [BMI] 32.0-32.9, adult; K21.9 Gastro-esophageal reflux disease without esophagitis; J45.20 Mild intermittent asthma, uncomplicated; F41.1 Generalized anxiety disorder; F32.A Depression, unspecified; F17.200 Nicotine dependence, unspecified, uncomplicated

== ENCOUNTER → 2024-11-08 12:53 | Outpatient (BNVA) | payer OTHER, SELFPAY | PROVIDERS: PCP Internal Medicine; Visit Provider Internal Medicine | DX: I10 Essential (primary) hypertension (principal); K21.9 Gastro-esophageal reflux disease without esophagitis; G43.909 Migraine, unspecified, not intractable, without status migrainosus; J45.20 Mild intermittent asthma, uncomplicated; F11.11 Opioid abuse, in remission; F41.1 Generalized anxiety disorder; F32.A Depression, unspecified; F17.210 Nicotine dependence, cigarettes, uncomplicated; E66.9 Obesity, unspecified; Z68.32 Body mass index [BMI] 32.0-32.9, adult | CPT/HCPCS: 99212 ==